=== PATIENT | female | born 1940 ===

== ENCOUNTER 2019-10-21 11:46 | Emergency (ER) | payer OTHER ==
[~2019-10-21] VITALS: Ht 160 cm; Wt 66.2 kg
[2019-10-21] MEDS ORDERED: LOTREL 5-40 MG1 EACH PO (12:32)
[2019-10-21] MEDS ORDERED: TENORMIN50 M1 PO (12:32)
[2019-10-21] MEDS ORDERED: SYNTHROID125 MCG PO (12:33)
[2019-10-21] MEDS ORDERED: GLUMETZA1000 MG PO (12:33)
[2019-10-21] MEDS ORDERED: ASPIR 8181 MG PO (12:34)
== END 2019-10-21 13:49 | disposition home or self-care (01) ==
LOC: ER 11:46
DX: S80.02XA Contusion of left knee, initial encounter (principal); S60.222A Contusion of left hand, initial encounter; S60.221A Contusion of right hand, initial encounter; W18.39XA Other fall on same level, initial encounter; Y93.89 Activity, other specified; Y92.89 Other specified places as the place of occurrence of the external cause; Y99.8 Other external cause status